=== PATIENT | male | born 1955 | race Caucasian/White ===

== ENCOUNTER 2019-08-19 09:32 | Outpatient (CLI) | payer OTHER ==
[~2019-08-19 09:32] MED LIST: AVAPRO300 MG; NORVASC5 MG
== END 2019-08-19 09:36 | disposition home or self-care (01) ==
LOC: SONOGRAMA 09:32
PROVIDERS: ATTEND Pathology Anatomic Pathology & Clinical Pathology
DX: E04.1 Nontoxic single thyroid nodule (principal)

== ENCOUNTER 2023-10-20 08:25 | Outpatient (CLI) | payer OTHER | END 2023-10-20 08:28 | disposition home or self-care (01) | LOC: SONOGRAMA 08:25 | PROVIDERS: ATTEND Pathology Anatomic Pathology | DX: D34 Benign neoplasm of thyroid gland (principal); E07.89 Other specified disorders of thyroid; E04.2 Nontoxic multinodular goiter ==